=== PATIENT | female | born 1965 | race American Indian/Alaskan Native ===

== ENCOUNTER 2021-11-21 08:44 | Emergency (ER) | payer OTHER ==
--- NOTE | 2021-11-21 08:54 | Emergency Department Report ---
ED General Adult HPI - General Chief complaint: Neuro Symptoms/Deficit Stated complaint: Weakness Time Seen by Provider: 11/21/21 08:50 Source: patient, RN notes reviewed Mode of arrival: Ambulatory Limitations: Physical Limitation - History of Present Illness Initial comments: This is a 56-year-old female. The details of her past medical history are not explicitly known to myself. The patient presents to the department today with a complaint of generalized weakness, headache, possible slurred speech, and possible extremity weakness. Patient is inconsistent on exact last known well time. Initially said that last known well time was yesterday. However, nursing team was informed that patient thought that some symptoms started at 8:00 in the morning, but was not certain. Neurologic symptoms include stuttering speech, questionable facial droop, and possible bilateral extremity weakness. -: unknown Location: left, right, upper extremity, lower extremity Severity scale (0 -10): 0 Associated Symptoms: weakness - Related Data Previous Rx's Medication Instructions Recorded Last Taken Type Aspirin 325 mg PO QDAY #30 tablet 11/21/21 Unknown Rx Prednisone [predniSONE 10 mg 10 mg PO .TAPER #1 11/21/21 Unknown Rx (6-Day Pack, 21 Tabs)] Allergies Allergy/AdvReac Type Severity Reaction Status Date / Time Sulfa (Sulfonamide Allergy Unknown Verified 11/21/21 10:21 Antibiotics) ED Review of Systems ROS: Stated complaint: POSSIBLE STROKE Other details as noted in HPI Respiratory: denies: cough Neurological: headache, weakness Psychiatric: anxiety ED Past Medical Hx - Medications Home Medications: Home Medications Medication Instructions Recorded Confirmed Last Taken Type Aspirin 325 mg PO QDAY #30 tablet 11/21/21 Unknown Rx Prednisone [predniSONE 10 mg 10 mg PO .TAPER #1 11/21/21 Unknown Rx (6-Day Pack, 21 Tabs)] ED Physical Exam - General Limitations: Physical Limitation General appearance: alert, anxious, obese - Head Head exam: Present: atraumatic, normocephalic - Eye Eye exam: Present: normal appearance, EOMI. Absent: nystagmus - ENT ENT exam: Present: normal exam, normal orophraynx, mucous membranes moist, n ormal external ear exam - Neck Neck exam: Present: normal inspection, full ROM. Absent: tenderness, meningismus - Respiratory Respiratory exam: Present: normal lung sounds bilaterally. Absent: respiratory distress, wheezes, rales, rhonchi, stridor, decreased breath sounds - Cardiovascular Cardiovascular Exam: Present: regular rate, normal rhythm, normal heart sounds. Absent: bradycardia, tachycardia, irregular rhythm, systolic murmur, diastolic murmur, rubs, gallop - GI/Abdominal GI/Abdominal exam: Present: soft. Absent: distended, tenderness, guarding, rebound, rigid, pulsatile mass - Extremities Exam Extremities exam: Present: normal inspection, other (2+ pulses noted in the bilateral upper and lower extremities. There is no palpable cord. negative Homans sign. Muscular compartments are soft. The pelvis is stable.). Absent: pedal edema, joint swelling, calf tenderness - Back Exam Back exam: Present: normal inspection. Absent: tenderness, CVA tenderness (R), CVA tenderness (L), paraspinal tenderness, vertebral tenderness - Neurological Exam Neurological exam: Present: alert - Psychiatric Psychiatric exam: Present: anxious - Skin Skin exam: Present: warm, dry, intact, normal color. Absent: rash - Other Other exam information: Patient has intermittent stuttering speech, but do not appreciate any dysarthria. 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 Has 4 out of 5 strength in the bilateral lower extremities. Sensation is intact to light touch in 4 extremities. The patient is alert to name. The patient follows commands. The tongue is midline. Facial droop is not appreciated. ED Course Vital Signs 11/21/21 11/21/21 11/21/21 08:46 09:25 09:30 Temperature 97.7 F Pulse Rate 96 H 79 79 Respiratory 16 12 15 Rate Blood Pressure 135/77 Blood Pressure 157/89 [Right] O2 Sat by Pulse 95 100 Oximetry 11/21/21 11/21/21 11/21/21 09:31 09:46 10:00 Temperature Pulse Rate 86 73 Respiratory 12 10 L Rate Blood Pressure 151/91 151/91 Blood Pressure [Right] O2 Sat by Pulse 100 98 99 Oximetry 11/21/21 11/21/21 11/21/21 10:16 10:30 10:46 Temperature Pulse Rate 70 74 81 Respiratory 19 8 L 22 Rate Blood Pressure 135/77 135/77 134/76 Blood Pressure [Right] O2 Sat by Pulse 100 99 99 Oximetry 11/21/21 11/21/21 11/21/21 11:00 11:30 12:00 Temperature Pulse Rate 78 76 77 Respiratory 14 13 15 Rate Blood Pressure 134/76 134/76 141/81 Blood Pressure [Right] O2 Sat by Pulse 99 99 98 Oximetry 11/21/21 11/21/21 12:30 13:03 Temperature Pulse Rate 73 Respiratory 16 Rate Blood Pressure 141/81 115/75 Blood Pressure [Right] O2 Sat by Pulse 97 Oximetry - Reevaluation(s) Reevaluation #1: 11/21/21 10:40 Differential diagnosis, including but not limited to: Migraine headache, tension headache, cluster headache, complex migraine, atypical presentation of stroke Assessment and plan: 56-year-old female with a complaint of stuttering speech, possible facial droop which I do not appreciate on my exam, patient able to show me both sides of her teeth symmetrically, with generalized weakness, without lateralizing weakness. She does move 4 extremities. In addition, timing of symptoms is inconsistent. Not able to obtain definitive last known well time. Given the aforementioned, it is my opinion that risks of tPA outweigh benefits. A CT scan of the brain was negative for acute findings. A CT angiogram head and neck was negative for acute findings. Seen in conjunction with stroke neurologist, Dr. Schafer, and we both agree that the patient is not a tPA shruthi te for the aforementioned reasons. We will treat her supportively and symptomatically. Urinalysis pending. Chest x-ray pending. Highly suspected conversion disorder, or complex migraine. History and physical very unlikely to be secondary to an acute ischemic event. Endorsed to hospital physician, Dr. Morley 11/21/21 13:51 ED Medical Decision Making - Lab Data Result diagrams: 11/21/21 Unknown 11/21/21 Unknown Vital Signs 11/21/21 11/21/21 11/21/21 08:46 09:25 09:30 Temperature 97.7 F Pulse Rate 96 H 79 79 Respiratory 16 12 15 Rate Blood Pressure 135/77 Blood Pressure 157/89 [Right] O2 Sat by Pulse 95 100 Oximetry 11/21/21 11/21/21 09:31 09:46 Temperature Pulse Rate 86 Respiratory 12 Rate Blood Pressure 151/91 Blood Pressure [Right] O2 Sat by Pulse 100 98 Oximetry Lab Results 11/21/21 11/21/21 11/21/21 Range/Units Unknown Unknown Unknown WBC 7.7 (4.5-11.0) K/mm3 RBC 3.86 (3.65-5.03) M/mm3 Hgb 12.2 (10.1-14.3) gm/dl Hct 35.2 (30.3-42.9) % MCV 91 (79-97) fl MCH 32 (28-32) pg MCHC 35 H (30-34) % RDW 13.3 (13.2-15.2) % Plt Count 225 (140-440) K/mm3 Lymph % (Auto) 29.5 (13.4-35.0) % Island % (Auto) 6.2 (0.0-7.3) % Eos % (Auto) 3.0 (0.0-4.3) % Baso % (Auto) 0.4 (0.0-1.8) % Lymph # (Auto) 2.3 (1.2-5.4) K/mm3 Island # (Auto) 0.5 (0.0-0.8) K/mm3 Eos # (Auto) 0.2 (0.0-0.4) K/mm3 Baso # (Auto) 0.0 (0.0-0.1) K/mm3 Seg Neutrophils % 60.9 (40.0-70.0) % Seg Neutrophils # 4.7 (1.8-7.7) K/mm3 PT 14.1 (12.2-14.9) Sec. INR 0.96 (0.87-1.13) APTT 40.0 H (24.2-36.6) Sec. Thrombin Time 18.3 (15.1-19.6) Sec. Sodium 136 L (137-145) mmol/L Potassium 4.0 (3.6-5.0) mmol/L Chloride 102.8 (98-107) mmol/L Carbon Dioxide 22 (22-30) mmol/L Anion Gap 15 mmol/L BUN 18 H (7-17) mg/dL Creatinine 0.6 (0.6-1.2) mg/dL Estimated GFR > 60 ml/min BUN/Creatinine Ratio 30 % Glucose 176 H (65-100) mg/dL Calcium 8.5 (8.4-10.2) mg/dL Magnesium (1.7-2.3) mg/dL Total Bilirubin 0.50 (0.1-1.2) mg/dL AST 11 (5-40) units/L ALT 16 (7-56) units/L Alkaline Phosphatase 69 (35-129) units/L Total Creatine Kinase 44 (30-135) units/L CK-MB (CK-2) < 1.0 (0.0-4.0) ng/mL CK-MB (CK-2) Rel Index 2.2 (0-4) Troponin T < 0.010 (0.00-0.029) ng/mL Total Protein 6.4 (6.3-8.2) g/dL Albumin 3.9 (3.9-5) g/dL Albumin/Globulin Ratio 1.6 % TSH (0.270-4.200) mlU/mL Plasma/Serum Alcohol (0-0.07) % 11/21/21 11/21/21 11/21/21 Range/Units Unknown Unknown Unknown WBC (4.5-11.0) K/mm3 RBC (3.65-5.03) M/mm3 Hgb (10.1-14.3) gm/dl Hct (30.3-42.9) % MCV (79-97) fl MCH (28-32) pg MCHC (30-34) % RDW (13.2-15.2) % Plt Count (140-440) K/mm3 Lymph % (Auto) (13.4-35.0) % Island % (Auto) (0.0-7.3) % Eos % (Auto) (0.0-4.3) % Baso % (Auto) (0.0-1.8) % Lymph # (Auto) (1.2-5.4) K/mm3 Island # (Auto) (0.0-0.8) K/mm3 Eos # (Auto) (0.0-0.4) K/mm3 Baso # (Auto) (0.0-0.1) K/mm3 Seg Neutrophils % (40.0-70.0) % Seg Neutrophils # (1.8-7.7) K/mm3 PT (12.2-14.9) Sec. INR (0.87-1.13) APTT (24.2-36.6) Sec. Thrombin Time (15.1-19.6) Sec. Sodium (137-145) mmol/L Potassium (3.6-5.0) mmol/L Chloride (98-107) mmol/L Carbon Dioxide (22-30) mmol/L Anion Gap mmol/L BUN (7-17) mg/dL Creatinine (0.6-1.2) mg/dL Estimated GFR ml/min BUN/Creatinine Ratio % Glucose (65-100) mg/dL Calcium (8.4-10.2) mg/dL Magnesium 2.10 (1.7-2.3) mg/dL Total Bilirubin (0.1-1.2) mg/dL AST (5-40) units/L ALT (7-56) units/L Alkaline Phosphatase (35-129) units/L Total Creatine Kinase 46 (30-135) units/L CK-MB (CK-2) (0.0-4.0) ng/mL CK-MB (CK-2) Rel Index (0-4) Troponin T (0.00-0.029) ng/mL Total Protein (6.3-8.2) g/dL Albumin (3.9-5) g/dL Albumin/Globulin Ratio % TSH 0.634 (0.270-4.200) mlU/mL Plasma/Serum Alcohol < 0.01 (0-0.07) % - EKG Data -: EKG Interpreted by Mn EKG shows normal: sinus rhythm Rate: normal - EKG Data When compared to previous EKG there are: previous EKG unavailable 11/21/21 10:38 The EKG is interpreted at 09: 22 Sinus rhythm, with a rate of 83 bpm. Normal axis, normal P wave axis, QTC is 4 5 0 ms. There is atrial enlargement. There is minimal motion artifact. This is an abnormal EKG. This is not a STEMI - Radiology Data Radiology results: pending, report reviewed, image reviewed CT HEAD WITHOUT CONTRAST INDICATION / CLINICAL INFORMATION: Stroke symptoms. TECHNIQUE: Axial imaging performed from the skull apex through the skull base without the use of contrast. Sagittal and coronal reformatted images. All CT scans at this location are performed using CT dose reduction for ALARA by means of automated exposure control. COMPARISON: None available. FINDINGS: CEREBRAL PARENCHYMA: No significant abnormality. No acute territorial infarct. Bilateral basal ganglia calcifications are noted. HEMORRHAGE: None. EXTRA-AXIAL SPACES: Normal in size and morphology for the patient's age. VENTRICULAR SYSTEM: Normal in size and morphology for the patient's age. MIDLINE SHIFT OR HERNIATION: None. CEREBELLUM / BRAINSTEM: There is a 1.3 x 0.7 cm hyperdense lesion in the right side of the posterior fossa along the greater sphenoid wing. This appears partially calcified and extra-axial in location. This probably represents a small meningioma. If further evaluation is needed, MRI with and without contrast could be obtained. CALVARIUM: No significant abnormality. ORBITS: Normal as v isualized. PARANASAL SINUSES / MASTOID AIR CELLS: Normal as visualized. SOFT TISSUES of HEAD: No significant abnormality. ADDITIONAL FINDINGS: None. IMPRESSION: No acute intracranial abnormality. Possible posterior fossa meningioma as described. COMMUN ICATION: Time of Communication (STABLE HELPER/CDT): 0810 hours Licensed Practitioner Receiving Report: NIKKI Francisco Signer Name: Sharad Alejandro Jr, MD Signed: 11/21/2021 8:11 AM Workstation Name: [id number] CT angio head HISTORY: stroke sx COMPARISON: None. TECHNIQUE: CTA of the head is performed after IV contrast. 3-D/MIP reformats were postprocessed. Per centage stenosis is determined by direct quantitative measurements of diseased internal carotid artery diameter compared with normal distal internal carotid artery reference segments or by criteria similar to NASCET where applicable. All CT scans at this location are performed using CT dose reduction for ALARA by means of automated exposure control. FINDINGS: CTA HEAD: Intracranial internal carotid arteries: No occlusion or significant stenosis. Anterior cerebral arteries: No occlusion or significant stenosis. Middle cerebral arteries: No occlusion or significant stenosis. Intracranial vertebral arteries: No occlusion or significant stenosis. Basilar artery: No occlusion or significant stenosis. Posterior cerebral arteries: No occlusion or significant stenosis. No aneurysm. Additional findings: None. IMPRESSION: 1. CTA HEAD: No occlusion or significant stenosis of the major intracranial vasculature. Signer Name: Alverto Rosario MD Signed: 11/21/2021 8:40 AM Workstation Name: [employer] CT angio neck HISTORY: stroke sx COMPARISON: None. TECHNIQUE: Routine CTA of the neck is performed. 3-D/MIP reformats were postprocessed. Percentage stenosis is determined by direct quantitative measurements of diseased internal carotid artery diameter compared with normal distal internal carotid artery reference segments or by criteria similar to NASCET where applicable. All CT scans at this location are performed using CT dose reduction for ALARA by means of automated exposure control. FINDINGS: Aortic arch: No significant abnormality. Cervical vertebral arteries: No occlusion or hemodynamically significant stenosis. Common Carotid arteries: No occlusion or hemodynamically significant stenosis. Internal carotid arteries: No occlusion or hemodynamically significant stenosis. Additional findings: Asymmetrical enhancement involving the right parotid gland. Multilevel spondylosis. Small lucent regions seen within the cervical spine, favored to be degenerative in etiology. IMPRESSION: 1. No occlusion or significant stenosis. 2. Asymmetrical hyperemia involving the right parotid gland, could be related to sialoadenitis. Correlate clinically. Signer Name: Alverto Rosario MD Signed: 11/21/2021 8:57 AM Workstation Name: [employer] Critical care attestation.: If time is entered above; I have spent that time in minutes in the direct care of this critically ill patient, excluding procedure time. ED Disposition Clinical Impression: Speech disturbance, Weakness, Headache Disposition: 09 ADMITTED INPATIENT Is pt being admited?: Yes Does the pt Need Aspirin: No Condition: Good Prescriptions: Aspirin 325 mg PO QDAY #30 tablet Prednisone [predniSONE 10 mg (6-Day Pack, 21 Tabs)] 10 mg PO .TAPER #1 Referrals: FREDERIC HARDY MD [Primary Care Provider] - 3-5 Days
--- NOTE | 2021-11-21 09:15 | Cat Scan Report ---
CT HEAD WITHOUT CONTRAST INDICATION / CLINICAL INFORMATION: Stroke symptoms. TECHNIQUE: Axial imaging performed from the skull apex through the skull base without the use of cont rast. Sagittal and coronal reformatted images. All CT scans at this location are performed using CT dose reduction for ALARA by means of automated exposure control. COMPARISON: None available. FINDINGS: CEREBRAL PARENCHYMA: No significant abnormality. No acute territorial infarct. Bilateral basal gangli a calcifications are noted. HEMORRHAGE: None. EXTRA-AXIAL SPACES: Normal in size and morphology for the patient's age. VENTRICULAR SYSTEM: Normal in size and morphology for the patient's age. MIDLINE SHIFT OR HERNIATION: None. CEREBELLUM / BRAINSTEM: There is a 1.3 x 0.7 cm hyperdense lesion in the right side of the posterior fossa along the greater sphenoid wing. This appears partially calcified and extra-axial in location. This probably represents a small meningioma. If further evaluation is needed, MRI with and without co ntrast could be obtained. CALVARIUM: No significant abnormality. ORBITS: Normal as visualized. PARANASAL SINUSES / MASTOID AIR CELLS: Normal as visualized. SOFT TISSUES of HEAD: No significant abnormality. ADDITIONAL FINDINGS: None. IMPRESSION: No acute intracranial abnormality. Possible posterior fossa meningioma as described. COMMUNICATION: Time of Communication (BIT SHAVER/CDT): 0810 hours Licensed Practitioner Receiving Report: NIKKI Francisco Signer Name: Sharad Alejandro Jr, MD Signed: 11/21/2021 9:11 AM Workstation Name: [id number]
--- NOTE | 2021-11-21 09:32 | Consultation ---
Medications and Allergies Allergies Allergy/AdvReac Type Severity Reaction Status Date / Time No Known Allergies Allergy Verified 11/21/21 08:49 Physical Examination - Vital Signs Vital Signs: Vital Signs Temp Pulse Resp BP Pulse Ox 97.7 F 96 H 16 157/89 95 11/21/21 08:46 11/21/21 08:46 11/21/21 08:46 11/21/21 08:46 11/21/21 08:46 Assessment and Plan [facility] Consult Note # Demographics Consult Type: Acute Stroke Level 1 (0-4.5 hrs) Patient Location: Emergency Room First Name: Sydney Last Name: Date of : 1965 Age: 56 Gender: Female Facility: [facility] Time of Initial Page ( Time): 11/21/2021, 08:49 Time of Return Call ( Time): 11/21/2021, 08:59 # HPI History: 57F with headache, to ED. When asked when she last felt normal she says "last night". When asked about the left sided weakness and slurred speech, this was first noted "about 30 minutes ago", which she continues to state the same after being in the department for more than [address] Ball also feels uncomfortable with the timing due to inconsistent reporting. I asked if she lives with someone, she says "my aunt", but also says her aunt did not see her this morning. # Scores Time of exam and NIHSS ( Time): 11/21/2021, 09:09 Level of Consciousness 1a: [0] = Alert; keenly responsive LOC Questions 1b: [0] = Answers both questions correctly LOC Commands 1c: [0] = Performs both tasks correctly Best Gaze 2: [0] = Normal Visual 3: [0] = No visual loss Facial Palsy 4: [0] = Normal symmetrical movements Motor Arm Left 5a: [0] = No drift Motor Arm Right 5b: [0] = No drift Motor Leg Left 6a: [2] = Some effort against gravity Motor Leg Right 6b: [2] = Some effort against gravity Limb Ataxia 7: [0] = Absent Sensory 8: [1] = [id number] sensory loss Best Language 9: [0] = No aphasia Dysarthria 10: [1] = [id number] dysarthria Extinction and Inattention 11: [0] = No abnormality NIHSS Total: 6 # Exam Additional Neurologic Exam: effort is variable, inconsistent. She will not lift her legs on either side, but when her legs are lifted she will resist gravity temporarily. # Data Time Head CT personally read by me (Eastern Time): 11/21/2021, 09:[address]: no bleed preliminarily reviewed by me, please refer to radiology read for official reading # Assessment Impression: Altered Mental Status and weakness, though examination is variable, in addition to stroke, complex migraine, also consider general medical illness. # Plan Thrombolytic/Intervention: NOT IV Thrombolysis or IA Intervention candidate Thrombolytic Exclusion (< 3 hour window): time of onset unclear Thrombolytic Exclusion: > 4.5 hours Intraarterial Exclusion: no large vessel occlusion (LVO) Target Blood Pressure: SBP < 220 Imaging: (urgency: routine): MRI Brain without contrast Diagnostic Test: echo with bubble study Medication: aspirin 81 mg daily Other: If patient has any neurological deterioration please call me back immediately permissive hypertension telemetry monitoring I have discussed my recommendations with the referring provider Disposition: admit # Logistics Telemedicine: Interactive 2 way audio and visual telecommunication technology was utilized during this visit # Demographics First Name: Sydney Last Name: Facility: [facility]
[2021-11-21 09:38] LABS: Basophils % (Auto) 0.4 % (0.0-1.8); Eosinophils # (Auto) 0.2 K/mm3 (0.0-0.4); Hematocrit 35.2 % (30.3-42.9); Hemoglobin 12.2 gm/dl (10.1-14.3); Lymphocytes # (Auto) 2.3 K/mm3 (1.2-5.4); Lymphocytes % (Auto) 29.5 % (13.4-35.0); Mean Corpuscular HGB Conc 35 % (30-34); Mean Corpuscular Volume 91 fl (79-97); Monocytes # (Auto) 0.5 K/mm3 (0.0-0.8); Monocytes % (Auto) 6.2 % (0.0-7.3); Platelet Count 225 K/mm3 (140-440); Red Blood Count 3.86 M/mm3 (3.65-5.03); Red Cell Distribution Width 13.3 % (13.2-15.2)
--- NOTE | 2021-11-21 09:44 | Cat Scan Report ---
CT angio head HISTORY: stroke sx COMPARISON: None. TECHNIQUE: CTA of the head is performed after IV contrast. 3-D/MIP reformats were postprocessed. Per centage stenosis is determined by direct quantitative measurements of diseased internal carotid arter y diameter compared with normal distal internal carotid artery reference segments or by criteria rakesh lar to NASCET where applicable. All CT scans at this location are performed using CT dose reduction f or ALARA by means of automated exposure control. FINDINGS: CTA HEAD: Intracranial internal carotid arteries: No occlusion or significant stenosis. Anterior cerebral arteries: No occlusion or significant stenosis. Middle cerebral arteries: No occlusion or significant stenosis. Intracranial vertebral arteries: No occlusion or significant stenosis. Basilar artery: No occlusion or significant stenosis. Posterior cerebral arteries: No occlusion or significant stenosis. No aneurysm. Additional findings: None. IMPRESSION: 1. CTA HEAD: No occlusion or significant stenosis of the major intracranial vasculature. Signer Name: Alverto Rosario MD Signed: 11/21/2021 9:40 AM Workstation Name: [email or web address]
[2021-11-21 09:51] LABS: INR 0.96 (0.87-1.13)
[2021-11-21 09:59] LABS: Thrombin Time 18.3 Sec. (15.1-19.6)
--- NOTE | 2021-11-21 10:01 | Cat Scan Report ---
CT angio neck HISTORY: stroke sx COMPARISON: None. TECHNIQUE: Routine CTA of the neck is performed. 3-D/MIP reformats were postprocessed. Percentage st enosis is determined by direct quantitative measurements of diseased internal carotid artery diameter compared with normal distal internal carotid artery reference segments or by criteria similar to HIRAM CET where applicable. All CT scans at this location are performed using CT dose reduction for ALARA b y means of automated exposure control. FINDINGS: Aortic arch: No significant abnormality. Cervical vertebral arteries: No occlusion or hemodynamically significant stenosis. Common Carotid arteries: No occlusion or hemodynamically significant stenosis. Internal carotid arteries: No occlusion or hemodynamically significant stenosis. Additional findings: Asymmetrical enhancement involving the right parotid gland. Multilevel spondylos is. Small lucent regions seen within the cervical spine, favored to be degenerative in etiology. IMPRESSION: 1. No occlusion or significant stenosis. 2. Asymmetrical hyperemia involving the right parotid gland, could be related to sialoadenitis. Corre late clinically. Signer Name: Alverto Rosario MD Signed: 11/21/2021 9:57 AM Workstation Name: [email or web address]
[2021-11-21 10:12] LABS: Alanine Aminotransferase 16 units/L (7-56); Albumin 3.9 g/dL (3.9-5); Blood Urea Nitrogen 18 mg/dL (7-17); Calcium 8.5 mg/dL (8.4-10.2); Hemolysis Index 9
[2021-11-21 10:16] LABS: BUN/Creatinine Ratio 30; Creatine Kinase MB < 1.0 ng/mL (0.0-4.0)
[2021-11-21] MEDS ORDERED: METOCLOPRAMIDE 10 MG/2 ML INJ IV ONE (10:26)
[2021-11-21] MEDS ORDERED: ACETAMINOPHEN 325 MG TAB PO ONE (10:26)
[2021-11-21] MEDS ORDERED: ASPIRIN 325 MG TAB PO ONE (10:26)
[2021-11-21] MEDS ORDERED: diphenhydrAMINE 50 MG/ML VIAL IV ONE (10:26)
--- NOTE | 2021-11-21 11:07 | XRay Report ---
XR chest 1V ap INDICATION / CLINICAL INFORMATION: weakness cva symptoms. COMPARISON: None available. FINDINGS: SUPPORT DEVICES: None. HEART /PULMONARY VASCULATURE: No significant abnormality. LUNGS / PLEURA: Diminished lung volumes. No evidence of focal infiltrate. No sizable pleural effusion . No pneumothorax. ADDITIONAL FINDINGS: No significant additional findings. IMPRESSION: Diminished lung volumes without evidence of acute cardiopulmonary disease. Signer Name: Anuj Sylvester MD Signed: 11/21/2021 11:03 AM Workstation Name: [email or web address]
[2021-11-21 11:21] LABS: Bilirubin,Urine NEG (Negative); Blood,Urine NEG (Negative); Color,Urine Yellow (Yellow); Protein,Urine <15 mg/dL mg/dL (Negative); Urobilinogen,Urine < 2 mg/dL (<2.0)
[2021-11-21 11:22] LABS: Bacteria,Urine 1+ /HPF (Negative); RBC,Urine < 1.0 /HPF (0.0-6.0); WBC,Urine < 1.0 /HPF (0.0-6.0)
[2021-11-21 11:28] LABS: Amphetamine Screen,Urine Negative; Benzodiazepines Screen,Urine Negative; Cannabinoid Screen,Urine Negative; Cocaine Screen,Urine Negative; Methadone Screen,Urine Negative; Opiate Screen,Urine Negative
--- NOTE | 2021-11-21 11:45 | Consultation ---
History of Present Illness - Reason for Consult Consult date: 11/21/21 Weak Requesting physician: KULWINDER MORENO - History of Present Illness 56 YO Female with MDD, Obesity presents ED for evaluation. Patient reports "I just do not feel good". Patient transported to [facility] requiring further care and evaluation of generalized weakness. Patient seen and evaluated emergency department. All lab and imaging studies reviewed. Patient found to not have any focal neurologic deficits. Patient however was initiated on CVA protocol. Patient does not have findings consistent with CVA. Patient complains of symptoms out of proportion to exam and interview. Patient family members question regarding patient's mental health. Patient found to have major depression, anhedonia, and multiple recent life stressors. Patient currently unemployed and lost her job and has experienced multiple financial hardships over the past several days. Patient found to have clinical syndrome consistent with major depression. Recommend outpatient psychiatric evaluation. Patient al so found to have incidental finding of meningioma on CT scan. Recommend outpatient neurology follow-up. Patient medically optimized and does not meet admission criteria at this time. Recommend outpatient psychiatric evaluation. 35 minutes HPI discharge coordination care. Past History Past Medical History: other (See HPI) Past Surgical History: No surgical history, Other (Reviewed) Social history: single, lives with family. denies: smoking, alcohol abuse, prescription drug abuse Family history: hypertension Medications and Allergies Allergies Allergy/AdvReac Type Severity Reaction Status Date / Time Sulfa (Sulfonamide Allergy Unknown Verified 11/21/21 10:21 Antibiotics) Home Medications Medication Instructions Recorded Confirmed Last Taken Type Aspirin 325 mg PO QDAY #30 tablet 11/21/21 Unknown Rx Prednisone [predniSONE 10 mg 10 mg PO .TAPER #1 11/21/21 Unknown Rx (6-Day Pack, 21 Tabs)] Review of Systems Constitutional: no weight loss, no weight gain, no fever, no chills Ears, nose, mouth and throat: no ear pain, no ear discharge, no decreased hearing, no nose pain, no nasal congestion, no nasal discharge Cardiovascular: no chest pain, no orthopnea, no palpitations, no lightheadedness Respiratory: no cough, no cough with sputum, no excessive sputum, no hemoptysis, no shortness of breath Gastrointestinal: no abdominal pain, no nausea, no vomiting, no diarrhea, no constipation Genitourinary Female: no pelvic pain, no flank pain, no dysuria, no urinary frequency, no urgency, no stress incontinence Rectal: no pain, no incontinence, no bleeding Musculoskeletal: no neck stiffness, no neck pain, no shooting arm pain, no arm numbness/tingling, no low back pain, no shooting leg pain, no leg numbness/tingling Integumentary: no rash, no wounds, no boils Neurological: no head injury, no paralysis, no weakness, no parathesias, no seizures, no ataxia Psychiatric: sleep disturbances, depression, hopelessness, anhedonia, mood swings Endocrine: no cold intolerance, no heat intolerance, no polyphagia, no excessive thirst, no polydipsia, no polyuria, no excessive sweating Hematologic/Lymphatic: no easy bruising, no easy bleeding Allergic/Immunologic: no urticaria, no allergic rhinitis Exam - Constitutional Vitals: Temp Pulse Resp BP Pulse Ox 97.7 F 81 22 134/76 99 11/21/21 08:46 11/21/21 10:46 11/21/21 10:46 11/21/21 10:46 11/21/21 10:46 General appearance: Present: no acute distress, well-nourished - EENT Eyes: Present: PERRL ENT: hearing intact, clear oral mucosa - Neck Neck: Present: supple, normal ROM - Respiratory Respiratory effort: normal Respiratory: bilateral: CTA - Cardiovascular Heart Sounds: Present: S1 & S2. Absent: rub, click - Extremities Extremities: pulses symmetrical, No edema Peripheral Pulses: within normal limits - Abdominal General gastrointestinal: Present: soft, non-tender, non-distended, normal bowel sounds Female genitourinary: Present: normal - Integumentary Integumentary: Present: clear, warm, dry - Musculoskeletal Musculoskeletal: gait normal, strength equal bilaterally - Psychiatric Psychiatric: appropriate mood/affect, intact judgment & insight - Neurologic Neurologic: CNII-XII intact, moves all extremities Results - Labs CBC & Chem 7: 11/21/21 Unknown 11/21/21 Unknown Labs: Abnormal lab results 11/21/21 11/21/21 11/21/21 Range/Units 09:58 Unknown Unknown MCHC 35 H (30-34) % APTT 40.0 H (24.2-36.6) Sec. Sodium (137-145) mmol/L BUN (7-17) mg/dL Glucose (65-100) mg/dL Ur Specific [place] 1.046 H (1.003-1.030) 11/21/21 Range/Units Unknown MCHC (30-34) % APTT (24.2-36.6) Sec. Sodium 136 L (137-145) mmol/L BUN 18 H (7-17) mg/dL Glucose 176 H (65-100) mg/dL Ur Specific [place] (1.003-1.030) Assessment and Plan - Patient Problems (1) Major depression Current Visit: Yes Status: Acute Plan to address problem: Psychiatry evaluation, cognitive behavioral therapy, outpatient medical management. (2) Cervical radiculopathy Current Visit: No Status: Acute Plan to address problem: Physical therapy, steroid therapy, supportive care, pain control. (3) Obesity (BMI 35.0-39.9 without comorbidity) Current Visit: No Status: Acute Plan to address problem: Balanced diet, increase physical activity discharge, outpatient pulmonary follow-up for sleep study. (4) Meningioma Current Visit: Yes Status: Acute Plan to address problem: Outpatient neurology follow-up. Incidental finding on CT scan, supportive care,
[2021-11-21 13:36] VITALS: BP 115/75
== END 2021-11-21 13:36 | disposition admitted as inpatient to this hospital (09) ==
LOC: ED 08:44
DX: R47.9 Unspecified speech disturbances (principal); R53.1 Weakness; R51.9 Headache, unspecified; R79.1 Abnormal coagulation profile; Z88.2 Allergy status to sulfonamides; Z79.899 Other long term (current) drug therapy
CPT/HCPCS: 36415; 70450; 70496; 70498; 71045; 80053; 80307; 81001; 82550; 82553; 82962; 83735; 84443; 84484; 85025; 85610; 85670; 85730; 93005; 96374; 96375; 99284; J1200; J2765; Q9967; 80320; G0480